=== PATIENT | male | born 1995 | race Caucasian/White ===

== ENCOUNTER 2019-12-11 16:52 | Emergency (ER) | payer OTHER, SELFPAY ==
[2019-12-11 17:04] VITALS: BP 158/80; PULSE 100; RESP 16; TEMP 37.2; O2SAT 98
--- NOTE | 2019-12-11 17:10 | ED.GENADULT ---
HPI - General Adult General Chief complaint: Wound/Laceration Stated complaint: Extremity injury, upper Time Seen by Provider: 12/11/19 17:10 Source: patient and RN notes reviewed Mode of arrival: ambulatory Limitations: no limitations History of Present Illness HPI narrative: 24-year-old male presents with complaints of laceration to 3rd (middle) finger on right hand, caused by pocket knife today 20 minutes prior to arrival to [facility]. Julio says he was cutting a bundle of wire when he sliced open LT 3rd finger. Applied pressure to control bleeding. Denies focal weakness and altered sensation. Denies pain, numbness or tingling, or loss of mobility. No foreign body sensation. LEFT HAND dominant hand. Tetanus NOT up to date, will update today. Remains active. The patient reports he have not been diagnosed with COVID-19. The patient reports he is not waiting for the results of a COVID-19 lab test. The patient reports he do not have fever, chills, weakness, or fatigue. The patient reports he do not have a new or worsening cough or shortness of breath. Denies chest pain. The patient reports he do not have any rhinorrhea, congestion, loss of taste, sore throat, nausea, vomiting, abdominal pain, and diarrhea. Tolerating po intake well. Denies recent traveling. Denies concerns for COVID-19 or exposures been home with limited outdoor exposure except for essential household needs, work, and return home. At this time, patient is not suspected of having COVID-19. Some parts of this dictation were generated by voice recognition software and may contain typographical and/or grammatical inaccuracies Related Data Home Medications Medication Instructions Recorded Confirmed insulin lispro [Humalog U-100 unit CONTINUOUS SUBCUTANEOUS 12/11/19 Insulin] INFUSION DIRECTED Allergies Allergy/AdvReac Type Severity Reaction Status Date / Time No Known Allergies Allergy Unverified 07/18/18 20:32 Review of Systems Review of Systems: Narrative: CONSTITUTIONAL: Denies fever, chills, sweats. EYES: Denies visual changes, redness, discharge. ENT: Denies rhinorrhea, congestion, sore throat, otalgia. CARDIOVASCULAR: Denies chest pain, palpitations, edema. RESPIRATORY: Denies dyspnea, wheezing, cough. GASTROINTESTINAL: Denies abdominal pain, nausea, vomiting, or diarrhea. SKIN: Denies rash or itching. Complains of laceration to 3rd (middle) finger on right hand. MUSCULOSKELETAL: Denies acute back pain, joint pain, or myalgia. NEUROLOGIC: Denies numbness or focal weakness. PSYCHIATRIC: Denies anxiety or depression. All other systems reviewed & are unremarkable except as noted in HPI and below. [facility] Past Medical History Medical History (Updated 12/11/19 @ 17:57 by NICOLAS Tucker) Type 1 diabetes Surgical History Surgical History (Updated 12/11/19 @ 17:51 by NICOLAS Tucker) No significant past surgical history Family History Family History (Updated 12/11/19 @ 17:52 by NICOLAS Tucker) Father Hypertension Mother Alive and well Social History Social History (Updated 12/11/19 @ 17:53 by NICOLAS Tucker) Smoking status: Current every day smoker Tobacco type: e-cigarettes/vaping Second hand tobacco smoke exposure: No Alcohol intake: never Substance use: current Substance use type: marijuana Living arrangements: with family Occupation/Education: occupation Gender identity (if verbalized by the patient): Male Sexual Orientation (if Verbalized by the Patient): Straight or Heterosexual Comments At time of signature, agree with nurse past medical, surgical, social, and family history. There is no relevant family history pertinent to the presenting complaint. Exam Narrative: Exam Narrative: GENERAL: This is a well-nourished, well-developed patient, in no apparent distress. HEAD: normocephalic, atraumatic. CARDIOVASCULAR: Regular rate and rhythm without mur
[2019-12-11] MEDS: TETANUS,DIPHTHERIA,AC PERTUSSIS ADULT (0.5 ML) BOOSTRIX IM (17:20)
[2019-12-11 17:59] VITALS: BP 142/78
== END 2019-12-11 17:59 | disposition home or self-care (01) ==
PROVIDERS: Emergency Provider Nurse Practitioner Family; PCP Family Medicine
DX: S61.212A Laceration without foreign body of right middle finger without damage to nail, initial encounter (principal); W26.0XXA Contact with knife, initial encounter; Z23 Encounter for immunization; F17.200 Nicotine dependence, unspecified, uncomplicated; E10.9 Type 1 diabetes mellitus without complications
CPT/HCPCS: 12002; 90471; 90715; 99213; G0463

== ENCOUNTER 2022-02-13 06:33 | Inpatient (IN) | payer OTHER, SELFPAY ==
[2022-02-13] VITALS (11 sets, daily range): BP systolic 101–143; BP diastolic 51–88; PULSE 78–107; RESP 16–21; TEMP 36.6–37.2; O2SAT 97–100; BMI 25.1
--- NOTE | ~2022-02-13 | CT_ITS ---
CT Abdomen and Pelvis with contrast. History: Abdominal pain. Spiral CT of the abdomen and pelvis was performed after the administration of intravenous contrast. 1 00 cc of Omnipaque 350 was administered intravenously without complication. Dose reduction technique was used on this scan by utilizing automated exposure control and iterative reconstruction technique. The dose-length product (DLP) was 221.16 mGy-cm. Findings: Scans through the lung bases demonstrate mild atelectatic change. The liver, spleen, pancreas, gallbladder, adrenals and kidneys are within normal limits. No evidence of aortic aneurysm. No lymphadenopathy is seen. There is no evidence of bowel obstruction. Questionable mild wall thickening of the right colon versu s partial distention. No abscess or free air. Images through the pelvis were performed. Urinary bladder unremarkable. Prostate gland and seminal ve sicles are unremarkable. No ascites is seen. Impression: Questionable mild wall thickening of the right colon. Correlate for possible infectious/inflammatory colitis versus artifactual wall thickening due to underdistention. Reviewed, dictated and finalized at [facility]. OGY PHYSICIAN ASSISTANT Impression: Questionable mild wall thickening of the right colon. Correlate for possible in fectious/inflammatory colitis versus artifactual wall thickening due to underdi stention.
--- NOTE | ~2022-02-13 | XR_ITS ---
Thoracic spine: Clinical Indication: Pain AP and lateral views were performed. No fracture is seen. There is normal alignment of the vertebrae. The intervertebral disc spaces appe ar normal. Paravertebral soft tissues appear normal. Impression: No significant abnormalities noted. Reviewed, dictated and finalized at [facility]. [employer] Impression: No significant abnormalities noted.
--- NOTE | ~2022-02-13 | XR_ITS ---
Portable chest x-ray Comparison: None Clinical History: Nausea, vomiting Findings: Lungs are clear, without focal consolidation or pleural effusion. Cardiomediastinal silho uette is unremarkable. Bones and soft tissues are unremarkable. Impression: Normal chest. Reviewed, dictated and finalized at location . SHED GOODS STOCK CLERK Impression: Normal chest.
--- NOTE | ~2022-02-13 | XR_ITS ---
Lumbosacral Spine: AP and lateral views Clinical History: Pain Findings: The normal lordotic curve is maintained. The vertebral bodies and posterior elements are i ntact. The intervertebral disc spaces are preserved. The sacroiliac joints are normally outlined. Impression: No significant abnormality. Reviewed, dictated and finalized at [facility]. E EDUCATOR Impression: No significant abnormality.
[2022-02-13 06:39] LABS: Glucose Point of Care 422 mg/dl (65-105)
[2022-02-13] MEDS: SODIUM CHLORIDE 0.9% IV 1,000 ML 999 ML IV CONT ×3 (06:47→11:02)
[2022-02-13 06:51] LABS: Basophils Absolute Auto 0.2 K/mm3 (0.0-0.1); Basophils Percent Auto 0.7 % (0.2-1.2); Eosinophils Percent Auto 0.1 % (0-4.4); Hematocrit 50.4 % (42.0-52.0); Hemoglobin 16.3 g/dL (14.0-18.0); Immature Granulocyte Absolute 0.81 K/mm3 (0.00-0.031); Immature Granulocyte Percent A 2.9 % (0-0.5); Lymphocytes Absolute Auto 2.52 K/mm3 (0.9-3.2); Lymphocytes Percent Auto 9.2 % (18.3-44.2); Mean Corpuscular HGB Conc 32.3 g/dl (32-36); Mean Corpuscular Hemoglobin 29.6 pg (26-34); Mean Corpuscular Volume 91.5 fl (80-100); Mean Platelet Volume 9.5 fl (7.4-10.4); Monocytes Absolute Auto 1.4 K/mm3 (0.1-0.6); Monocytes Percent Auto 4.9 % (2.6-8.5); Neutrophils Absolute Auto 22.6 K/mm3 (1.3-6.7); Neutrophils Percent Auto 82.2 % (45.5-73.1); Platelet Count Result 358 k/mm3 (150-375); Red Blood Count 5.51 M/mm3 (4.6-6.20); Red Cell Distribution Width 11.9 % (11.5-14.5); White Blood Count 27.5 K/mm3 (4.5-10.0)
[2022-02-13 06:57] LABS: Alanine Aminotransferase 26 U/L (6-50); Albumin Level 5.5 g/dL (3.5-5.1); Alkaline Phosphatase 142 U/L (38-126); Anion Gap 31 mmol/L (8-16); Aspartate Amino Transferase 38 U/L (17-59); Bilirubin,Total 0.9 mg/dL (0.2-1.3); Blood Urea Nitrogen 29 mg/dL (9-20); Calcium 9.8 mg/dL (8.4-10.2); Carbon Dioxide 9 mmol/L (22-30); Chloride 103 mmol/L (98-107); Estimated CRCL calculation 88 ml/min; Estimated Glomerular Filt Rate > 60; Glucose 451 mg/dL (65-110); Magnesium 2.2 mg/dL (1.6-2.3); Phosphorus 7.3 mg/dL (2.5-4.5); Potassium 5.3 mmol/L (3.4-5.0); Sodium 143 mmol/L (137-145)
[2022-02-13 07:03] LABS: Alveolar/Arterial O2 Gradient 10.1 mmHg; Base Excess ABG -18.8 mEq/l (+/-2.0); Carboxyhemoglobin 0.7 % THb (0-2.0); Fractional Inspired Oxygen 21 %; Methemoglobin ABG 0.5 %THb (0-1.5); Oxygen Content ABG 21.2 %vol (16.0-22.0); Oxygen Saturation ABG 96.2 % (95.0-100.0); Oxyhemoglobin 95.5 % THb (90.0-100.0); PCO2 ABG 27.9 mmHg (35.0-45.0); PO2 ABG 106.2 mmHg (80.0-100.0); PO2 FiO2 Ratio Arterial Blood 5.06 %; Reduced Hemoglobin 3.3 %THb (0-5.0); Total Hemoglobin 15.7 g/dL (12.0-18.0)
[2022-02-13 07:05] LABS: Device ROOM AIR; Modified Allen's Test Pass; Site Drawn LEFT RADIAL; pH ABG 7.125 (7.350-7.450)
--- NOTE | 2022-02-13 07:15 | PC.NURSE ---
Patient report received from LACHO Ortiz. All questions answered and care of patient assumed.
--- NOTE | 2022-02-13 07:38 | ED.RECABL ---
HPI - Recheck/Abnormal Lab/Rx General Chief Complaint: Recheck/Abnormal Lab/Rx Stated Complaint: dka Time Seen by Provider: 02/13/22 07:08 Source: patient Mode of arrival: wheelchair History of Present Illness HPI narrative: This is a 26 year old male with history of DM type 1 who presents for evaluation of high blood sugar. He states this morning his blood sugar was above 600. He has been having increased thirst, nausea, vomiting, and diarrhea. He also reports mid constant abdominal pain this morning. He reports cough. He is unsure if he had fever but he states he does feel hot. He reports history of DKA 5 years ago. He denies any recent medication changes. He uses an insulin pump, and he reports he bolused himself 3 units prior to arrival. Related Data Allergies Allergy/AdvReac Type Severity Reaction Status Date / Time No Known Allergies Allergy Verified 02/13/22 06:47 Review of Systems Constitutional: Constitutional: Reports fatigue, Denies fever(s) and Reports weakness Cardiovascular: Cardiovascular: Denies syncope, Reports rapid heart rate, Denies irregular heart rhythm, Denies leg edema and Denies dyspnea Respiratory: Respiratory: Denies chest congestion, Reports cough, Denies hemoptysis, Denies excessive phlegm production and Denies dyspnea Gastrointestinal: Gastrointestinal: Reports abdominal pain, Denies hematochezia, Reports diarrhea, Reports nausea and Reports vomiting Genitourinary: Genitourinary: Denies hematuria, Denies dysuria, Denies penile discharge and Denies testicular pain Musculoskeletal: Musculoskeletal: Denies joint swelling, Denies loss of height and Denies muscle weakness Neurologic: Denies syncope, Denies focal weakness and Denies weakness PMFSH Past Medical History Medical History (Updated 02/13/22 @ 12:14 by Josemanuel Benavides MD) Diabetic ketoacidosis Type 1 diabetes mellitus with hyperglycemia Surgical History Surgical History (Updated 02/13/22 @ 15:39 by Bhavna Carrillo NP) No pertinent past surgical history Family History Family History Other Depression Family history of Alzheimer's disease Family history of arthritis Family history of elevated blood lipids Family history of malignant neoplasm of esophagus Hypertension Social History Social History (Updated 02/13/22 @ 15:41 by Bhavna Carrillo NP) Social History: He lives with his significant other. He does not have a durable power attorney law clerk for healthcare. The patient does vape tobacco. Patient denies any marijuana or other illicit drugs. He denies any alcohol, except for an occasional social drink. The patient is self-employed he works for a [employer] company. Code status full code Smoking status: Current every day smoker Tobacco type: e-cigarettes/vaping Alcohol intake: never Lack of Transportation: No Lack of Food: Sometimes True Current Housing: I Have Housing Concerned About Future Housing: No Difficulty Paying Gas/Electric Bills: No Difficulty Paying for Meds: No Currently Unemployed: No Education: High School Diploma/GED Difficulty w/ Childcare or Family Care: No Spiritual care concerns: No Exam Const: General: ill appearing Nutritional Appearance: thin Orientation/consciousness: patient oriented x3 HENMT: Head: normal to inspection Face and sinus: normal facial exam Mouth: Yes dry mucous membranes Eyes: EOM: EOMs intact bilaterally Neck: Neck: normal visual inspection Chest: Chest palpation & inspection: normal inspection of the chest Resp: Effort & Inspection: normal respiratory effort Auscultation: clear to auscultation bilaterally and no wheezes Cardio: Rate: tachycardic Rhythm: regular rhythm Heart sounds: no murmurs GI: GI Palp: Yes Soft to palpation, Yes Tenderness to palpation present (GI) (Diffuse), No Guarding due to palpation present (GI), No Rigid due to palpation and No Hernia p
[2022-02-13] MEDS: INSULIN HUMAN REGULAR (*BKC) 100 UNITS in SODIUM CHLORIDE 0.9% IV 99 ML 7.8 UNITS IV CONT (07:54)
[2022-02-13 08:00] LABS: Anion Gap 27 mmol/L (8-16); Blood Urea Nitrogen 29 mg/dL (9-20); Calcium 8.9 mg/dL (8.4-10.2); Carbon Dioxide 7 mmol/L (22-30); Chloride 105 mmol/L (98-107); Estimated CRCL calculation 88 ml/min; Estimated Glomerular Filt Rate > 60; Glucose 433 mg/dL (65-110); Potassium 5.6 mmol/L (3.4-5.0); Sodium 139 mmol/L (137-145)
[2022-02-13] MEDS: ONDANSETRON INJ 4 MG/2 ML VIAL IV PUSH (08:00)
[2022-02-13 08:01] LABS: Beta-Hydroxybutyrate/Acetoacetate 8.21 mmol/L (0.02-0.27)
[2022-02-13] MEDS: SODIUM CHLORIDE 0.9% IV 1,000 ML 150 ML IV CONT (08:07)
[2022-02-13 08:21] LABS: Add Urine Microscopic? YES; Appearance Urine Clear (Clear); Bilirubin Urine Negative (Negative); Blood Urine Trace-Intact (Negative); Color Urine Light Yellow (Yellow); Glucose Urine UA 3+ mg/dL (Negative); Ketones Urine 3+ mg/dL (Negative); Leukocyte Esterase Ur Negative LEU/UL (Negative); Nitrate Urine Negative (Negative); Protein Urine Negative (Negative); Specific Grav Ur 1.025 (1.001-1.035); Urobilinogen Urine 0.2 mg/dL (<2.0); pH Urine 5.5 (5.0-9.0)
[2022-02-13 08:25] LABS: Bacteria Urine Trace /hpf; Mucus Urine Rare /lpf; WBC Urine 0-3 /hpf
[2022-02-13 08:26] LABS: Influenza A QL RT-PCR Negative (Negative); Influenza B QL RT-PCR Negative (Negative); SARS-CoV-2 RNA PCR Negative
[2022-02-13 09:11] LABS: Glucose Point of Care 365 mg/dl (65-105)
[2022-02-13 09:24] LABS: Glucose Point of Care 335 mg/dl (65-105)
[2022-02-13 10:03] LABS: Glucose Point of Care 266 mg/dl (65-105)
[2022-02-13 10:50] LABS: Anion Gap 19 mmol/L (8-16); Blood Urea Nitrogen 26 mg/dL (9-20); Calcium 8.3 mg/dL (8.4-10.2); Carbon Dioxide 10 mmol/L (22-30); Chloride 108 mmol/L (98-107); Estimated CRCL calculation 107 ml/min; Estimated Glomerular Filt Rate > 60; Glucose 243 mg/dL (65-110); Potassium 4.3 mmol/L (3.4-5.0); Sodium 137 mmol/L (137-145)
[2022-02-13 10:55] LABS: Glucose Point of Care 217 mg/dl (65-105)
[2022-02-13] MEDS: KCL 20 MEQ/D5/0.45% SOD CHL 1,000 ML 150 ML IV CONT ×2 (11:03→17:08)
[2022-02-13 12:00] LABS: Glucose Point of Care 191 mg/dl (65-105)
--- NOTE | 2022-02-13 12:01 | WPDCNINT ---
Assessment and Plan Assessment and plan (1) Colitis: Code(s): K52.9 - Noninfective gastroenteritis and colitis, unspecified Status: Acute Assessment and Plan: Patient complaining of abdominal pain and diarrhea -CT scan of the abdomen and pelvis showed questionable mild wall thickening of the right colon, correlate for possible infectious/inflammatory colitis versus artifactual wall thickening due to under distension -patient started on Zosyn and will continue (2) Leukocytosis: Code(s): D72.829 - Elevated white blood cell count, unspecified Status: Acute (3) DKA, type 1: Code(s): E10.10 - Type 1 diabetes mellitus with ketoacidosis without coma Status: Acute Assessment and Plan: Patient presented with hyperglycemia, nausea, vomiting, diarrhea -diagnosed with diabetic ketoacidosis with elevated beta hydroxybutyrate, anion gap metabolic acidosis, ABG showed a pH of 7.12 -patient received 2 L IV fluids in the ER and started on insulin infusion -will give additional IV fluid this patient states he is thirsty, clinical exam in showed hypovolemia with dry oral mucosa -continue insulin infusion for now, will transition to long-acting insulin sliding scale insulin once anion gap closes -okay to have ice chips and sips of water -hemoglobin A1c was 11.0 this admission Plan DVT prophylaxis: Lovenox Stress ulcer prophylaxis: Not indicated Nutrition: NPO for now except ice chips and sips of water Discussed with patient and updated him with his condition and plan of care. Code Status: Full code Critical Care Time Spent: 42 minutes Due to a high probability of clinically significant, life threatening deterioration, the patient required my highest level of preparedness to intervene emergently and I personally spent this critical care time directly and personally managing the patient. This critical care time included obtaining a history; examining the patient; pulse oximetry; ordering and review of studies; arranging urgent treatment with development of a management plan; evaluation of patient's response to treatment; frequent reassessment; and discussions with other providers. It was exclusive of separately billable procedures and treating other patients and teaching time. Please see Assessment and Plan section and the rest of the note for further information on patient assessment and treatment This dictation may have been done utilizing a voice recognition system. Attempts have been made to correct errors. However, there may be uncorrected grammatical, spelling, and recognitions errors present. Power System Electrical Engineer Consult Note Consult date: 02/13/22 Reason for consult: Diabetic ketoacidosis, nausea, vomiting, abdominal pain, polyuria, polydipsia HPI: Julio Acsota is a 26 year old male with past medical history of diabetes type 1 on insulin pump presented the ED on 02/13/2022 with complains of hyperglycemia with blood sugars of 600, increased thirst, nausea, vomiting, diarrhea, increased urination. Patient states that he has had DKA about 5 years back, states he has been regular with his insulin and his pump is functioning fine. Patient was found to be in diabetic ketoacidosis with elevated anion gap, beta hydroxybutyrate. ABG showed a pH of 7.12. Patient was given 2 L IV fluids and started on insulin infusion and transferred to the ICU for further management Patient seen and examined the ICU upon arrival, very pleasant gentleman, in no acute distress at this time. Complains of back pain, abdominal pain and nausea. Patient is very thirsty and wants to drink some water. States he smokes marijuana, vapes, occasional alcohol but no other illicit drugs. Denies any other medical conditions Review of Systems Review of Systems: All systems reviewed & are unremarkable except as noted in HPI and below PMFSH Past Medical History Medical History (Updated 02/13/22 @ 12:14 by Josemanuel Benavides MD) Diabetic ke
[2022-02-13 13:00] LABS: Glucose Point of Care 181 mg/dl (65-105)
[2022-02-13 14:13] LABS: Glucose Point of Care 186 mg/dl (65-105)
[2022-02-13] MEDS: HYDROcodone/acetaminophen (*CRX) 5-325 MG TABLET 1 TAB PO (14:59)
[2022-02-13 15:04] LABS: Glucose Point of Care 177 mg/dl (65-105)
--- NOTE | 2022-02-13 15:08 | PM.IMHP ---
H&P: HPI History of Present Illness Date/Time: 02/13/22 15:08 Chief Complaint: Abnormal labs Narrative: This is a 26-year-old male patient who has diabetes type 1 who was diagnosed as a young child. The patient presented to the emergency room to be evaluated with high blood sugars. The patient does have a DEXA come and insulin pump. He stated this morning his blood sugar was over 600. He had increased thirst nausea and diarrhea. He also reported that he had mid constant abdominal pain this morning. He did not check his temperature but he feels like he is hot. The patient's last DKA episode was 5 years ago. No recent medication changes. The patient did bolus himself 3 units of insulin today prior to arrival to the emergency room. The patient has also has nausea vomiting w/o diarrhea. His white count was noted to be 27.5. On his ABGs pH was 7.125. PO2 106.2. PCO2 was 27.9. Patient has metabolic acidosis. Initially his potassium was 5.6 and now to 4.3. His blood sugar initially was 422 and is now 177. A1c was noted to be 11. Beta hydroxybutyrate acetoacetate was noted to be 8.21. Influenza A/B and COVID are all negative. Thoracic spine x-ray was noted to be no significant abnormalities per Radiology. Lumbar spine no significant abnormality. Chest x-ray was read as a normal chest. Abdominal pelvis CT was read as questionable mild wall thickening of the right colon. Correlate for possible infectious inflammatory colitis versus artifactual wall thickening due to under distention. The patient was given IV fluids, Zofran, Zosyn, potassium supplement and [place]. The patient was started on an insulin drip. The rehabilitation engineer has been consulted for ICU. The patient is being admitted to inpatient status on the date of service of 02/13/2022. Review of Systems Review of Systems: See HPI All systems reviewed & are unremarkable except as noted in HPI and below Constitutional: Constitutional: Reports as per HPI and Reports no additional constitutional complaints Eyes: Eyes: Reports as per HPI and Reports no additional eye complaints ENT: Reports system reviewed and no additional complaints, except as documented and Reports Normal hearing present Cardiovascular: Cardiovascular: Reports no additional cardiovascular complaints Respiratory: Respiratory: Reports no additional respiratory complaints and Reports no additional respiratory complaints Gastrointestinal: Gastrointestinal: Reports as per HPI and Reports no additional gastrointestinal complaints Musculoskeletal: Musculoskeletal: Reports no additional musculoskeletal complaints Integumentary/Breasts: Skin/Breast: Reports system reviewed and no additional complaints, except as docu and Reports as per HPI Neurologic: Reports system reviewed and no additional complaints, except as documented, Reports as per HPI and Reports Normal hearing present Psychiatric: Psychiatric: Reports no additional psychiatric complaints and Reports as per HPI Endocrine: Endocrine: Reports no additional endocrine complaints Hematologic/Lymphatic: Hematologic/Lymphatic: Reports no additional hematologic/lymphatic complaints Allergic/Immunologic: Allergic/Immunologic: Reports no additional allergic/immunologic complaints [facility] Past Medical History Medical History (Updated 02/13/22 @ 12:14 by Josemanuel Benavides MD) Diabetic ketoacidosis Type 1 diabetes mellitus with hyperglycemia Surgical History Surgical History (Updated 02/13/22 @ 15:39 by Bhavna Carrillo NP) No pertinent past surgical history Family History Family History Other Depression Family history of Alzheimer's disease Family history of arthritis Family history of elevated blood lipids Family history of malignant neoplasm of esophagus Hypertension Social History Social History (Updated 02/13/22 @ 15:41 by Bhavna Carrillo NP) Social History: He lives with his sign
[2022-02-13 15:43] LABS: Anion Gap 8 mmol/L (8-16); Blood Urea Nitrogen 22 mg/dL (9-20); Calcium 8.2 mg/dL (8.4-10.2); Carbon Dioxide 18 mmol/L (22-30); Chloride 113 mmol/L (98-107); Estimated CRCL calculation 119 ml/min; Estimated Glomerular Filt Rate > 60; Glucose 185 mg/dL (65-110); Potassium 4.2 mmol/L (3.4-5.0); Sodium 139 mmol/L (137-145)
[2022-02-13 16:06] LABS: Glucose Point of Care 154 mg/dl (65-105)
[2022-02-13 17:06] LABS: Glucose Point of Care 156 mg/dl (65-105)
[2022-02-13] MEDS: INSULIN HUMAN REGULAR (*BKC) 100 UNITS in SODIUM CHLORIDE 0.9% IV 99 ML 7.68 UNITS IV CONT (17:06)
[2022-02-13 18:06] LABS: Glucose Point of Care 119 mg/dl (65-105)
[2022-02-13 19:07] LABS: Glucose Point of Care 118 mg/dl (65-105)
[2022-02-13 19:53] LABS: Anion Gap 7 mmol/L (8-16); Blood Urea Nitrogen 20 mg/dL (9-20); Calcium 8.5 mg/dL (8.4-10.2); Carbon Dioxide 19 mmol/L (22-30); Chloride 114 mmol/L (98-107); Estimated CRCL calculation 119 ml/min; Estimated Glomerular Filt Rate > 60; Glucose 109 mg/dL (65-110); Potassium 3.9 mmol/L (3.4-5.0); Sodium 140 mmol/L (137-145)
[2022-02-13 20:02] LABS: Glucose Point of Care 86 mg/dl (65-105)
[2022-02-13] MEDS: INSULIN GLARGINE (*BKC) 100 UNITS/ML 30 UNITS SUB-Q (20:53)
[2022-02-13 20:58] LABS: Glucose Point of Care 90 mg/dl (65-105)
[2022-02-13 23:21] LABS: Anion Gap 8 mmol/L (8-16); Blood Urea Nitrogen 18 mg/dL (9-20); Calcium 8.3 mg/dL (8.4-10.2); Carbon Dioxide 20 mmol/L (22-30); Chloride 105 mmol/L (98-107); Estimated CRCL calculation 134 ml/min; Estimated Glomerular Filt Rate > 60; Glucose 196 mg/dL (65-110); Potassium 4.5 mmol/L (3.4-5.0); Sodium 133 mmol/L (137-145)
[2022-02-14] VITALS (9 sets, daily range): BP systolic 119–128; BP diastolic 58–82; PULSE 71–89; RESP 12–30; TEMP 36.4–36.9; O2SAT 98–100
[2022-02-14 04:40] LABS: Basophils Absolute Auto 0.1 K/mm3 (0.0-0.1); Basophils Percent Auto 0.3 % (0.2-1.2); Eosinophils Absolute Auto 0.1 K/mm3 (0-0.3); Eosinophils Percent Auto 0.5 % (0-4.4); Hematocrit 37.4 % (42.0-52.0); Hemoglobin 12.6 g/dL (14.0-18.0); Immature Granulocyte Absolute 0.12 K/mm3 (0.00-0.031); Immature Granulocyte Percent A 0.6 % (0-0.5); Lymphocytes Absolute Auto 2.92 K/mm3 (0.9-3.2); Lymphocytes Percent Auto 14.9 % (18.3-44.2); Mean Corpuscular HGB Conc 33.7 g/dl (32-36); Mean Corpuscular Volume 86.2 fl (80-100); Monocytes Absolute Auto 0.9 K/mm3 (0.1-0.6); Monocytes Percent Auto 4.7 % (2.6-8.5); Neutrophils Absolute Auto 15.5 K/mm3 (1.3-6.7); Platelet Count Result 256 k/mm3 (150-375); Red Blood Count 4.34 M/mm3 (4.6-6.20); Red Cell Distribution Width 12.1 % (11.5-14.5); White Blood Count 19.6 K/mm3 (4.5-10.0)
[2022-02-14 05:21] LABS: Alanine Aminotransferase 18 U/L (6-50); Albumin Level 3.5 g/dL (3.5-5.1); Alkaline Phosphatase 80 U/L (38-126); Anion Gap 9 mmol/L (8-16); Aspartate Amino Transferase 29 U/L (17-59); Bilirubin,Total 1.2 mg/dL (0.2-1.3); Blood Urea Nitrogen 16 mg/dL (9-20); Calcium 8.2 mg/dL (8.4-10.2); Carbon Dioxide 21 mmol/L (22-30); Chloride 107 mmol/L (98-107); Estimated CRCL calculation 134 ml/min; Estimated Glomerular Filt Rate > 60; Glucose 217 mg/dL (65-110); Magnesium 1.8 mg/dL (1.6-2.3); Potassium 4.3 mmol/L (3.4-5.0); Sodium 137 mmol/L (137-145)
[2022-02-14 08:30] LABS: Glucose Point of Care 229 mg/dl (65-105)
[2022-02-14] MEDS: INSULIN ASPART (*BKC) 100 UNITS/ML SUB-Q ×2 (09:00→17:20)
[2022-02-14] MEDS: ENOXAPARIN 40 MG/0.4 ML SYRINGE SUB-Q (09:15)
--- NOTE | 2022-02-14 09:24 | WPDINTPN ---
Progress Note: A&P Assessment and Plan (1) Colitis: Code(s): K52.9 - Noninfective gastroenteritis and colitis, unspecified Status: Acute Assessment and Plan: Patient complaining of abdominal pain and diarrhea -CT scan of the abdomen and pelvis showed questionable mild wall thickening of the right colon, correlate for possible infectious/inflammatory colitis versus artifactual wall thickening due to under distension Continue Zosyn (started on 02/13) -02/13/2022: Blood cultures pending (2) Leukocytosis: Code(s): D72.829 - Elevated white blood cell count, unspecified Status: Acute Assessment and Plan: Could be related to colitis and or DKA/stress -WBC count trending down, will continue to monitor -continue antibiotics as above (3) DKA, type 1: Code(s): E10.10 - Type 1 diabetes mellitus with ketoacidosis without coma Status: Acute Assessment and Plan: Patient presented with hyperglycemia, nausea, vomiting, diarrhea -diagnosed with diabetic ketoacidosis with elevated beta hydroxybutyrate, anion gap metabolic acidosis, ABG showed a pH of 7.12 -in adequately fluid-resuscitated in the ER and ICU -patient has been transition to long-acting insulin and sliding scale insulin -Lantus increased -continue Accu-Cheks and sliding scale insulin -hemoglobin A1c was 11.0 this admission Plan DVT prophylaxis: Lovenox Stress ulcer prophylaxis: Not indicated Nutrition: Diabetic diet Discussed with patient and updated him with his condition and plan of care. Code Status: Full code Critical Care Time Spent: 31 minutes Patient may be transferred to medical floor Due to a high probability of clinically significant, life threatening deterioration, the patient required my highest level of preparedness to intervene emergently and I personally spent this critical care time directly and personally managing the patient. This critical care time included obtaining a history; examining the patient; pulse oximetry; ordering and review of studies; arranging urgent treatment with development of a management plan; evaluation of patient's response to treatment; frequent reassessment; and discussions with other providers. It was exclusive of separately billable procedures and treating other patients and teaching time. Please see Assessment and Plan section and the rest of the note for further information on patient assessment and treatment This dictation may have been done utilizing a voice recognition system. Attempts have been made to correct errors. However, there may be uncorrected grammatical, spelling, and recognitions errors present. Subjective Date/time seen: 02/14/22 09:24 Interval history: Reason for consult: Diabetic ketoacidosis, leukocytosis, colitis with abdominal pain, nausea and vomiting. CT scan of the abdomen and pelvis showed questionable mild wall thickening of the right colon possible infectious or inflammatory colitis 02/14/2022: Patient seen and examined the ICU, was transition to long-acting insulin and sliding scale insulin overnight, started on diabetic diet. Patient is pleasant, denies any chest pain, shortness of breath, abdominal pain, nausea, vomiting. Still complains of mild back pain. Urine output has been adequate, patient has been afebrile and hemodynamically stable. Tolerating p.o. diet Review of Systems Review of Systems: All systems reviewed & are unremarkable except as noted in HPI and below Exam Narrative: General: Pleasant gentleman in no acute distress HEENT:? Pupils are equal and reactive, sclera is clear, moist oral mucosa Neck:? Supple Respiratory:? Clear to auscultation bilaterally, no wheezing Cardiac:? S1-S2 normal, regular rate and rhythm Abdomen:? Soft, nontender, nondistended, normoactive bowel sounds Extremities:? No edema, palpable pedal pulses Neuro:? Alert, awake, oriented x3, nonfocal Skin:? Warm and dry Psych:? Normal affect and mentation
[2022-02-14] MEDS: INSULIN GLARGINE (*BKC) 100 UNITS/ML 10 UNITS SUB-Q (10:20)
[2022-02-14 12:16] LABS: Glucose Point of Care 164 mg/dl (65-105)
--- NOTE | 2022-02-14 16:40 | PM.IMPN ---
Progress Note: A&P Assessment and Plan (1) Colitis: Code(s): K52.9 - Noninfective gastroenteritis and colitis, unspecified Status: Acute Assessment and Plan: Patient presented with abdominal pain and diarrhea. He though denies having any diarrhea since past 3 days. -CT scan of the abdomen and pelvis showed questionable mild wall thickening of the right colon, correlate for possible infectious/inflammatory colitis versus artifactual wall thickening due to under distension WBC count 27,000 on admission Started on IV Zosyn which will be continued. Started on 02/13 Blood culture no growth WBC count improved down to 19,000 (2) Leukocytosis: Code(s): D72.829 - Elevated white blood cell count, unspecified Status: Acute Assessment and Plan: Could be related to colitis and or DKA/stress -WBC count trending down, will continue to monitor -continue antibiotics as above COVID influenza negative Chest x-ray was normal (3) DKA, type 1: Code(s): E10.10 - Type 1 diabetes mellitus with ketoacidosis without coma Status: Acute Assessment and Plan: Patient presented with hyperglycemia, nausea, vomiting, diarrhea -diagnosed with diabetic ketoacidosis with elevated beta hydroxybutyrate, anion gap metabolic acidosis, ABG showed a pH of 7.12 -in adequately fluid-resuscitated in the ER and ICU -patient has been transition to long-acting insulin and sliding scale insulin -Lantus increased -continue Accu-Cheks and sliding scale insulin -hemoglobin A1c was 11.0 this admission Patient normally on pump. Takes 1.7 units from 9 P to 7A and 1.8 units from 07A to 9p total basal unit of 42.2 units per day He is scheduled to get 40 units at bedtime tonight. Will check labs again tomorrow and re-attempt to initiate his pump back later tomorrow in the evening. DKA might be related to underlying colitis Plan DVT prophylaxis: Lovenox Stress ulcer prophylaxis: Not indicated Nutrition: Diabetic diet Code status full code Subjective Date/time seen: 02/14/22 16:40 Interval history: Moved out of the ICU this morning. No further nausea vomiting. Denies any abdominal pain he never had diarrhea. Presented with diabetic ketoacidosis leukocytosis colitis. He has been diagnosed with type 1 diabetes when she was 6 years old. He has been on a pump since [age] years Review of Systems Review of Systems: All systems reviewed & are unremarkable except as noted in HPI and below Exam Narrative: General: Pleasant gentleman in no acute distress HEENT:? Pupils are equal and reactive, sclera is clear, moist oral mucosa Neck:? Supple Respiratory:? Clear to auscultation bilaterally, no wheezing Cardiac:? S1-S2 normal, regular rate and rhythm Abdomen:? Soft, nontender, nondistended, normoactive bowel sounds Extremities:? No edema, palpable pedal pulses Neuro:? Alert, awake, oriented x3, nonfocal Skin:? Warm and dry Psych:? Normal affect and mentation Objective Data Vital Signs Vital Signs: Vital Signs - 24 hr 02/13/22 17:40 02/13/22 20:00 02/13/22 21:48 Temperature 98.7 F Pulse Rate 78 82 82 Respiratory Rate 16 Blood Pressure 132/68 Pulse Oximetry 100 Oxygen Delivery 02/13/22 22:00 02/13/22 22:00 02/14/22 00:00 Temperature Pulse Rate 86 83 89 Respiratory Rate 18 Blood Pressure Pulse Oximetry 100 Oxygen Delivery 02/14/22 00:00 02/14/22 02:00 02/14/22 02:00 Temperature 98 F 98.3 F Pulse Rate 89 80 80 Respiratory Rate 16 16 Blood Pressure 123/59 L Pulse Oximetry 100 100 Oxygen Delivery 02/14/22 04:00 02/14/22 04:00 02/13/22 21:18 Temperature 97.9 F Pulse Rate 79 79 Respiratory Rate 16 Blood Pressure 128/82 Pulse Oximetry 100 97 Oxygen Delivery Room Air 02/14/22 06:00 02/14/22 06:00 02/14/22 08:00 Temperature 97.9 F Pulse Rate 83 81 75 Respiratory Rate 16 24 H Blood Pressure 124/74 Pulse Oximetry 99 99 Oxygen Delivery
[2022-02-14 17:25] LABS: Glucose Point of Care 214 mg/dl (65-105)
[2022-02-14] MEDS: HYDROcodone/acetaminophen (*CRX) 5-325 MG TABLET 1 TAB PO (20:00)
[2022-02-14] MEDS: INSULIN GLARGINE (*BKC) 100 UNITS/ML 40 UNITS SUB-Q (20:11)
[2022-02-14 21:27] LABS: Glucose Point of Care 203 mg/dl (65-105)
[2022-02-15 05:57] VITALS: BP 129/68; PULSE 58; RESP 18; TEMP 36.2; O2SAT 100
[2022-02-15 06:54] LABS: Basophils Absolute Auto 0.1 K/mm3 (0.0-0.1); Basophils Percent Auto 0.7 % (0.2-1.2); Eosinophils Absolute Auto 0.1 K/mm3 (0-0.3); Eosinophils Percent Auto 0.9 % (0-4.4); Hematocrit 40.2 % (42.0-52.0); Hemoglobin 13.7 g/dL (14.0-18.0); Immature Granulocyte Absolute 0.04 K/mm3 (0.00-0.031); Immature Granulocyte Percent A 0.4 % (0-0.5); Lymphocytes Percent Auto 36.2 % (18.3-44.2); Mean Corpuscular HGB Conc 34.1 g/dl (32-36); Mean Corpuscular Hemoglobin 29.1 pg (26-34); Mean Corpuscular Volume 85.4 fl (80-100); Mean Platelet Volume 9.1 fl (7.4-10.4); Monocytes Absolute Auto 0.7 K/mm3 (0.1-0.6); Monocytes Percent Auto 7.2 % (2.6-8.5); Neutrophils Absolute Auto 5.6 K/mm3 (1.3-6.7); Neutrophils Percent Auto 54.6 % (45.5-73.1); Platelet Count Result 283 k/mm3 (150-375); Red Blood Count 4.71 M/mm3 (4.6-6.20); White Blood Count 10.2 K/mm3 (4.5-10.0)
[2022-02-15 07:25] LABS: Alanine Aminotransferase 30 U/L (6-50); Albumin Level 4.2 g/dL (3.5-5.1); Alkaline Phosphatase 89 U/L (38-126); Anion Gap 6 mmol/L (8-16); Aspartate Amino Transferase 41 U/L (17-59); Bilirubin,Total 0.7 mg/dL (0.2-1.3); Blood Urea Nitrogen 10 mg/dL (9-20); Calcium 9.2 mg/dL (8.4-10.2); Carbon Dioxide 31 mmol/L (22-30); Chloride 104 mmol/L (98-107); Estimated CRCL calculation 125 ml/min; Estimated Glomerular Filt Rate > 60; Glucose 50 mg/dL (65-110); Magnesium 2.1 mg/dL (1.6-2.3); Potassium 2.5 mmol/L (3.4-5.0); Sodium 141 mmol/L (137-145)
[2022-02-15] MEDS: ENOXAPARIN 40 MG/0.4 ML SYRINGE SUB-Q (08:02)
[2022-02-15 08:03] LABS: Glucose Point of Care 91 mg/dl (65-105)
[2022-02-15] MEDS: POTASSIUM CHLORIDE INJ 40 MEQ in SODIUM CHLORIDE 0.9% IV 500 ML 130 MEQ IVPB (10:06)
[2022-02-15 11:58] LABS: Glucose Point of Care 216 mg/dl (65-105)
[2022-02-15] MEDS: INSULIN ASPART (*BKC) 100 UNITS/ML SUB-Q (12:10)
--- NOTE | 2022-02-15 13:30 | PCCDE ---
DIABETES EDUCATION F/UP: Pt admitted 02/13 with DKA and colitis. Pt has hx of T1D managed by endo Dr Marroquin in [place]. He uses Medtronic pump and SMBG (dislikes Guardian sensor). Pt sts my A1c is a little high, it's the holidays and I haven't been watching like I should Insulin pump is currently off and insulin orders are as follows: 35 units Lantus HS, high dose Novolog correction scale TID WM. Pt sts appetite is better and chart shows 100% intake at meals. Per Medtronic pump: ICR= 1:5, Sensitivity is 40, target BG is 110-130. Basal rate per H&P is 9p-7a 1.7 units/hr, 7a-9p 1.8 units/hr (42.2 units/24hr). FBS today was 50mg/dl (received 40 units Lantus last night), and lunch BG was 216. Discussed and recommended to Dr Lott: add 12 units Novolog WM and change correction scale to low, pt needs rx for ketone strips at discharge. Met with pt and discussed how to transition back to insulin pump after receiving SQ insulin. Pt has pump but no pump supplies here. Explained he will need to have family bring pump supplies to start pump here vs possible discharge today. Pt has Glucagon at home; sts need rx for ketone strips. Pt plans to get [employer] CGM after insurance updates in Mar. He will f/up with Dr Marroquin for this. Pt v/u. Provided business card.
[2022-02-15 14:00] VITALS: BP 126/80; PULSE 85; RESP 16; TEMP 36.2; O2SAT 100
--- NOTE | 2022-02-15 14:52 | PM.IMPN ---
Progress Note: A&P Assessment and Plan (1) Colitis: Code(s): K52.9 - Noninfective gastroenteritis and colitis, unspecified Status: Acute Assessment and Plan: Patient presented with abdominal pain and diarrhea. He though denies having any diarrhea since past 3 days. -CT scan of the abdomen and pelvis showed questionable mild wall thickening of the right colon, correlate for possible infectious/inflammatory colitis versus artifactual wall thickening due to under distension WBC count 27,000 on admission Started on IV Zosyn which will be continued. Started on 02/13 Blood culture no growth WBC count continues to improve (2) Leukocytosis: Code(s): D72.829 - Elevated white blood cell count, unspecified Status: Acute Assessment and Plan: Could be related to colitis and or DKA/stress -WBC count trending down, will continue to monitor -continue antibiotics as above COVID influenza negative Chest x-ray was normal (3) DKA, type 1: Code(s): E10.10 - Type 1 diabetes mellitus with ketoacidosis without coma Status: Acute Assessment and Plan: Patient presented with hyperglycemia, nausea, vomiting, diarrhea -diagnosed with diabetic ketoacidosis with elevated beta hydroxybutyrate, anion gap metabolic acidosis, ABG showed a pH of 7.12 -in adequately fluid-resuscitated in the ER and ICU -patient has been transition to long-acting insulin and sliding scale insulin -Lantus increased -continue Accu-Cheks and sliding scale insulin -hemoglobin A1c was 11.0 this admission Patient normally on pump. Takes 1.7 units from 9 P to 7A and 1.8 units from 07A to 9p total basal unit of 42.2 units per day his transition to 40 units of Lantus. Received it at 9:00 p.m. last night. Will transition to insulin pump tonight Will start the pump at 7:00 p.m. tonight and monitor Accu-Cheks while inpatient DKA might be related to underlying colitis Plan DVT prophylaxis: Lovenox Stress ulcer prophylaxis: Not indicated Nutrition: Diabetic diet Code status full code Subjective Date/time seen: 02/15/22 14:52 Interval history: no new complaints. Denies any diarrhea or abdominal pain. No nausea vomiting his throat pain is better. Prefers to get switched to pump Here Review of Systems Review of Systems: All systems reviewed & are unremarkable except as noted in HPI and below Exam Narrative: General: Pleasant gentleman in no acute distress HEENT:? Pupils are equal and reactive, sclera is clear, moist oral mucosa Neck:? Supple Respiratory:? Clear to auscultation bilaterally, no wheezing Cardiac:? S1-S2 normal, regular rate and rhythm Abdomen:? Soft, nontender, nondistended, normoactive bowel sounds Extremities:? No edema, palpable pedal pulses Neuro:? Alert, awake, oriented x3, nonfocal Skin:? Warm and dry Psych:? Normal affect and mentation Objective Data Vital Signs Vital Signs: Vital Signs - 24 hr 02/14/22 18:30 02/14/22 20:00 02/14/22 22:00 Temperature 98.3 F 97.5 F L Pulse Rate 78 71 Respiratory Rate 12 18 Blood Pressure 127/58 L 119/69 Pulse Oximetry 100 98 Oxygen Delivery Room Air 02/14/22 22:15 02/15/22 05:57 02/15/22 08:00 Temperature 97.2 F L Pulse Rate 58 L Respiratory Rate 18 Blood Pressure 129/68 Pulse Oximetry 99 100 Oxygen Delivery Room Air Room Air 02/15/22 14:00 Temperature 97.2 F L Pulse Rate 85 Respiratory Rate 16 Blood Pressure 126/80 Pulse Oximetry 100 Oxygen Delivery Intake/Output Intake/Output: Intake & Output 02/12/22 02/13/22 02/14/22 02/15/22 23:59 23:59 23:59 23:59 Intake Total 3350 1920 560 Output Total 1000 2200 Balance 2350 -280 560 Meds/Results Medications: Active Medications Generic Name Dose Route Start Last Admin Trade Name Prince PRN Reason Stop Dose Admin Acetaminophen 650 mg 02/13/22 14:36 Acetaminophen 325 Mg Tablet PO Q6H PRN Mild Pain (1-3) or Fever Hydrocodone Bitart/A
[2022-02-15 16:09] LABS: Potassium 3.6 mmol/L (3.4-5.0)
[2022-02-15 16:44] LABS: Glucose Point of Care 128 mg/dl (65-105)
[2022-02-15 21:16] LABS: Glucose Point of Care 165 mg/dl (65-105)
[2022-02-15 21:32] VITALS: BP 139/85; PULSE 72; RESP 18; TEMP 36.2; O2SAT 100
[2022-02-16 00:59] LABS: Glucose Point of Care 224 mg/dl (65-105)
[2022-02-16 05:42] VITALS: BP 133/79; PULSE 60; RESP 20; TEMP 36.2; O2SAT 100
[2022-02-16 07:52] LABS: Basophils Absolute Auto 0.1 K/mm3 (0.0-0.1); Basophils Percent Auto 0.7 % (0.2-1.2); Eosinophils Absolute Auto 0.1 K/mm3 (0-0.3); Eosinophils Percent Auto 1.9 % (0-4.4); Hematocrit 41.3 % (42.0-52.0); Hemoglobin 13.8 g/dL (14.0-18.0); Immature Granulocyte Absolute 0.01 K/mm3 (0.00-0.031); Immature Granulocyte Percent A 0.1 % (0-0.5); Lymphocytes Absolute Auto 2.99 K/mm3 (0.9-3.2); Lymphocytes Percent Auto 44.6 % (18.3-44.2); Mean Corpuscular HGB Conc 33.4 g/dl (32-36); Mean Corpuscular Hemoglobin 29.4 pg (26-34); Mean Corpuscular Volume 87.9 fl (80-100); Mean Platelet Volume 9.1 fl (7.4-10.4); Monocytes Absolute Auto 0.6 K/mm3 (0.1-0.6); Monocytes Percent Auto 8.3 % (2.6-8.5); Neutrophils Percent Auto 44.4 % (45.5-73.1); Platelet Count Result 221 k/mm3 (150-375); Red Cell Distribution Width 12.1 % (11.5-14.5); White Blood Count 6.7 K/mm3 (4.5-10.0)
[2022-02-16 08:03] LABS: Alanine Aminotransferase 25 U/L (6-50); Alkaline Phosphatase 77 U/L (38-126); Anion Gap 2 mmol/L (8-16); Aspartate Amino Transferase 25 U/L (17-59); Bilirubin,Total 1.4 mg/dL (0.2-1.3); Blood Urea Nitrogen 13 mg/dL (9-20); Calcium 9.1 mg/dL (8.4-10.2); Carbon Dioxide 33 mmol/L (22-30); Chloride 100 mmol/L (98-107); Estimated CRCL calculation 110 ml/min; Estimated Glomerular Filt Rate > 60; Glucose 274 mg/dL (65-110); Magnesium 2.1 mg/dL (1.6-2.3); Potassium 4.3 mmol/L (3.4-5.0); Sodium 135 mmol/L (137-145)
[2022-02-16 08:27] LABS: Glucose Point of Care 285 mg/dl (65-105)
[2022-02-16 11:48] LABS: Glucose Point of Care 254 mg/dl (65-105)
--- NOTE | 2022-02-16 15:14 | PM.DS ---
DS: Admitting Diagnosis Discharge Date 02/16/22 Admitting Diagnosis DKA DS: Discharge Diagnosis Discharge Diagnosis (1) Colitis: Code(s): K52.9 - Noninfective gastroenteritis and colitis, unspecified Status: Acute (2) Leukocytosis: Code(s): D72.829 - Elevated white blood cell count, unspecified Status: Acute (3) DKA, type 1: Code(s): E10.10 - Type 1 diabetes mellitus with ketoacidosis without coma Status: Acute DS: Summary Hospital Course Hospital Course: # acute DKA type 1: Patient presented with hyperglycemia, nausea, vomiting, diarrhea -diagnosed with diabetic ketoacidosis with elevated beta hydroxybutyrate, anion gap metabolic acidosis, ABG showed a pH of 7.12 -adequately fluid-resuscitated in the ER and ICU -patient has been transition to long-acting insulin and sliding scale insulin -Lantus dose adjusted the hospital stay -continue Accu-Cheks? and sliding scale insulin -hemoglobin A1c was 11.0 this admission Patient normally on pump.? Takes 1.7 units from 9 P to 7A and 1.8 units from 07A to 9p total basal unit of 42.2 units per day Just be transient 20 since gets completely resolved and is colitis improved as well lupus switched pump and monitor during hospital stay sugar remained stable without any reappearance of DKA like symptoms on the. He continued to follow-up with his molder wax ball as an outpatient basis. For emergency he was ordered Lantus and NovoLog supply for home in case she needs when his insulin pump fails. DKA might be related to underlying colitis # Colitis: Patient presented with abdominal pain and diarrhea.? He though denies having any diarrhea since past 3 days. -CT scan of the abdomen and pelvis showed questionable mild wall thickening of the right colon, correlate for possible infectious/inflammatory colitis versus artifactual wall thickening due to under distension WBC count 27,000 on admission Started on IV Zosyn which will be continued.? Started on 02/13 Blood culture no growth WBC count? continues to improve and normalized by the time of discharge. Augmentin at discharge # leukocytosis: Could be related to colitis and or DKA/stress -WBC count trending down, will continue to monitor -continue antibiotics as above COVID influenza negative Chest x-ray was normal # type 1 diabetes since age 6 # DVT prophylaxis:? Lovenox # Nutrition:? Diabetic diet cosmetology educator saw the patient and discussed with them # Code status full code Time Spent with Patient Time attestation: Total time spent providing and/or coordinating discharge services: 45 minutes Exam Narrative: General: Pleasant gentleman in no acute distress HEENT:? Pupils are equal and reactive, sclera is clear, moist oral mucosa Neck:? Supple Respiratory:? Clear to auscultation bilaterally, no wheezing Cardiac:? S1-S2 normal, regular rate and rhythm Abdomen:? Soft, nontender, nondistended, normoactive bowel sounds Extremities:? No edema, palpable pedal pulses Neuro:? Alert, awake, oriented x3, nonfocal Skin:? Warm and dry Psych:? Normal affect and mentation DS: Data Data Completed and Pending Labs on day of discharge: Preliminary micro results at discharge 02/13/22 19:09 Blood Culture - Preliminary Blood 02/13/22 19:13 Blood Culture - Preliminary Blood Imaging Radiologist's impression: ITS Impressions Abdomen/Pelvis CT 02/13/22 07:32 Impression: Questionable mild wall thickening of the right colon. Correlate for possible infectious/inflammatory colitis versus artifactual wall thickening due to underdistention. Chest X-Ray 02/13/22 07:45 Impression: Normal chest. Lumbar Spine X-Ray 02/13/22 10:51 Impression: No significant abnormality. Thoracic Spine X-Ray 02/13/22 10:51 Impression: No significant abnormalities noted. Discharge Plan Discharge Attending physician on discharge: Gary Lott
== END 2022-02-16 13:21 | disposition home or self-care (01) | DRG 639 ==
LOC: ANHED 08:09 → ANHICU 08:35 → ANH3MEDSUR 02-14 11:01
PROVIDERS: Emergency Medicine; Internal Medicine; Admitting Provider Chiropractor; Emergency Provider General Practice; Visit Provider Internal Medicine
DX: E10.10 Type 1 diabetes mellitus with ketoacidosis without coma (principal); K52.9 Noninfective gastroenteritis and colitis, unspecified; F17.290 Nicotine dependence, other tobacco product, uncomplicated; Z96.41 Presence of insulin pump (external) (internal); Z20.822 Contact with and (suspected) exposure to COVID-19
CPT/HCPCS: 36415; 36600; 71045; 72070; 72100; 74177; 80048; 80053; 81001; 82010; 82375; 82805; 82948; 83036; 83050; 83735; 84100; 84132; 85025; 87040; 87636; 96361; 96374; 99285; A9270; J1650; J1815; J2405; J2543; J3480; J7030; J7040; Q9967

== ENCOUNTER 2024-04-16 17:26 | Emergency (ER) | payer OTHER, SELFPAY ==
--- NOTE | 2024-04-16 17:29 | ED.SKABFB ---
HPI - Skin/Abscess/Foreign Bdy General Chief complaint: Skin/Abscess/Foreign Body Stated complaint: INFECTED CYST R LEG Time Seen by Provider: 04/16/24 17:29 Source: patient Mode of arrival: ambulatory Limitations: no limitations History of Present Illness HPI narrative: Patient is a 28-year-old male that presents with a wound to right medial thigh. Patient states that started on Friday as a small dean that he popped and drained a small amount of liquid from. Since then it has grown in redness and tenderness. Denies any more drainage. Patient has been using Neosporin and then wrapping with Sung wrap. Patient is a type 1 diabetic. Related Data Home Medications ?Medication ?Instructions ?Recorded ?Confirmed ?Last Taken ?Type insulin lispro 100 unit/mL 1.8 unit continuous subcutaneous 02/15/22 04/16/24 Unknown History subcutaneous solution (Humalog infusion DAILY U-100 Insulin) Allergies Allergy/AdvReac Type Severity Reaction Status Date / Time No Known Allergies Allergy Verified 04/16/24 17:36 Review of Systems Review of Systems: All systems reviewed & are unremarkable except as noted in HPI and below Constitutional: Constitutional: Denies body ache(s), Denies chills, Denies fatigue, Denies fever(s), Denies headache(s), Denies malaise and Denies weakness Eyes: Eyes: Denies blurry vision, Denies irritation and Denies loss of vision ENT: Denies otalgia, Denies headache(s), Denies nasal discharge, Denies sinus pain and Denies sore throat Cardiovascular: Cardiovascular: Denies chest pain, Denies irregular heart rhythm and Denies dyspnea Respiratory: Respiratory: Denies dyspnea Gastrointestinal: Gastrointestinal: Denies abdominal pain, Denies melena, Denies hematochezia, Denies diarrhea, Denies nausea and Denies vomiting Musculoskeletal: Musculoskeletal: Denies back pain, Denies myalgias and Denies arthralgias Integumentary/Breasts: Skin/Breast: Denies pruritus, Denies rash and Reports wounds Neurologic: Denies headache(s), Denies loss of vision and Denies weakness Psychiatric: Psychiatric: Reports no additional psychiatric complaints Endocrine: Endocrine: Denies fatigue PMFSH Past Medical History Medical History Type 1 diabetes Diabetic ketoacidosis Type 1 diabetes mellitus with hyperglycemia Surgical History Surgical History No significant past surgical history No pertinent past surgical history Family History Family History Father Hypertension Mother Alive and well Other Depression Family history of Alzheimer's disease Family history of arthritis Family history of elevated blood lipids Family history of malignant neoplasm of esophagus Social History Social History Social History: He lives with his significant other. He does not have a durable power privacy attorney for healthcare. The patient does vape tobacco. Patient denies any marijuana or other illicit drugs. He denies any alcohol, except for an occasional social drink. The patient is self-employed he works for a [employer] company. Code status full code Smoking status: Never smoker Tobacco type: e-cigarettes/vaping Second hand tobacco smoke exposure: No Alcohol intake: never Substance use: current Substance use type: marijuana Lack of Transportation: No Lack of Food: Sometimes True Current Housing: I Have Housing Concerned About Future Housing: No Difficulty Paying Gas/Electric Bills: No Difficulty Paying for Meds: No Currently Unemployed: No Education: High School Diploma/GED Difficulty w/ Childcare or Family Care: No Living arrangements: with family Occupation/Education: occupation Gender identity (if verbalized by the patient): Male Sexual Orientation (if Verbalized by the Patient): Straight or Heterosexual Spiritual care concerns: No Comments At time of signature, agree with nursing past medical, surgical, social and family history. There is no relevant family history pertinent to the presenting complaint. Exam Const: General: cooperative, healthy appearing, comfortable, no acute distress and well nourished Nutritional Appearance: well nourished Orientation/consciousness: patient oriented x3 Limitations: no limitations HENMT: Head: normal to inspection, normocephalic and atraumatic Ears: hearing grossly normal bilaterally and external ears normal Face/Nose/Sinus: Normal external nose present, normal facial exam and face symmetric Face and sinus: normal facial exam and face symmetric Mouth: Yes lip normal Eyes: General: appearance normal, both eyes and all related structures Alignment and Position: alignment normal and position normal Periorbital: periorbital findings normal Eyelids: eyelids normal Pupils: Equal, round and reactive pupils present EOM: EOMs intact bilaterally Neck: Neck: normal visual inspection, full ROM and supple Chest: Chest palpation & inspection: normal inspection of the chest Resp: Effort & Inspection: normal respiratory effort and able to speak in complete sentences Auscultation: clear to auscultation bilaterally Cardio: Rate: regular rate Rhythm: regular rhythm Heart sounds: S1 normal heart sound present and S2 normal heart sound present GI: Inspection: normal to inspection Skin: General skin exam: normal color and no rashes or lesions noted Full body images:  1. 4x4 cm Area of induration and erythema with center 1 x 1 cm area of scabbed over wound. No active drainage or fluctuance Neuro: General: patient oriented x3 and moves all extremities Cranial nerves: Yes Equal, round and reactive pupils present Speech: normal speech Gait exam (Neuro): Normal gait present Extrem: General: normal to inspection, full ROM and no edema Psych: Appearance: grossly normal and well kempt Mental Status: mental status grossly normal Speech and movement: Normal speech and movement present Affect: normal affect Attitude: cooperative Thought process: Normal thought process present Course Course Emergency Course: Patient is aware of diagnosis, understands and agrees to treatment plan. Anticipatory guidance given. Patient agrees to follow-up as directed and is aware of reasons to seek care at the emergency department. Portions of this record may have been created with voice recognition software Level of Care: Express Care Visit Vital Signs Vital signs: Vital Signs Temperature 37.1 C 04/16/24 17:42 Pulse Rate 103 H 04/16/24 17:42 Respiratory Rate 16 04/16/24 17:42 Blood Pressure 146/102 H 04/16/24 17:42 Pulse Oximetry 99 04/16/24 17:42 Temperature 37.1 C 04/16/24 17:42 Pulse Rate 103 H 04/16/24 17:42 Respiratory Rate 16 04/16/24 17:42 Blood Pressure 146/102 H 04/16/24 17:42 Pulse Oximetry 99 04/16/24 17:42 Reviewed MDM - Skin/Abscess/Foreign Bdy MDM Narrative Medical decision making narrative: Pt well hydrated appearing, in no respiratory distress, hemodynamically stable. Recommend supportive care. The patient is stable at time of discharge the clinical impression was discussed and the patient was given the opportunity to ask questions, which were addressed as completely as possible given the information available at present. Anticipatory guidance and return to care precautions were discussed and the importance of primary care follow-up was stressed and encouraged. The patient voiced understanding of the plan, indications to return, and the need for follow-up. Exam findings show no acute concerns or changes Patient is appropriate for outpatient treatment and follow-up. Differential Diagnosis Differential diagnosis: Likely abscess of skin or subcutaneous tissue, cellulitis and contact dermatitis Medical Records Attestation: I reviewed the patient's medical records. Discharge Plan Discharge Clinical Impression: Cellulitis Qualifiers: Site of cellulitis: extremity Site of cellulitis of extremity: lower extremity Laterality: right Qualified Code(s): L03.115 - Cellulitis of right lower limb Patient Disposition: Home, Self-Care Condition: Stable Instructions: Cellulitis (ED) Additional Instructions: Please follow up with your Primary Care Doctor within 48-72 hours - call for an appointment. Rest and elevate affected area; apply moist heat 3-4 times daily for 10-15 minutes. Take Motrin 600mg every 8 hours with food for pain. Please take Antibiotics as directed. If you experience any worsening redness, swelling, streaking (red lines), fever or chills please go to the ER Your blood pressure was elevated above 120/80 today at Urgent Care. This puts you above the threshold for follow up visit with a primary care provider. High blood pressure does not usually cause any symptoms, however it may lead to kidney failure, stroke, heart disease just to name a few if untreated . Many people are anxious when seeing a provider or nurse. As a result, you are not diagnosed with hypertension at this time unless your blood pressure is persistently high at two office visits at least one week apart. Some things that can help lower blood pressure are lifestyle modifications, such as light exercise, decreased salt in diet, and weight loss. It is important to follow up with a PCP about this within 1 week. Patient Language: Australian Prescriptions: New clindamycin HCl 300 mg capsule 300 mg PO Q8H 10 Days Qty: 30 0RF sulfamethoxazole-trimethoprim 800-160 mg tablet 1 tablet PO Q12H 5 Days Qty: 10 0RF mupirocin 2 % ointment 1 applic topical BID Qty: 15 0RF No Action metronidazole 500 mg tablet 500 mg PO Q8H Qty: 30 0RF insulin lispro [Humalog U-100 Insulin] 100 unit/mL solution 1.8 unit continuous subcutaneous infusion DAILY Rx Instructions: Basil Rate: 1.8U/hour during day 1.7U/hour during night Bolus 5-10U per meal insulin glargine [Lantus Solostar U-100 Insulin] 100 unit/mL (3 mL) insulin pen 40 unit subcut QPM PRN (Reason: diabetes) Qty: 15 0RF Rx Instructions: use when pump fails insulin aspart U-100 100 unit/mL (3 mL) Insulin Pen 1 sliding scale dose SUBCUT USEASDIRECTD 30 Days Qty: 3 0RF Rx Instructions: Sliding scale instructions include: glucose 70-200 no additional insulin glucose 201-250 4 units subcutaneously glucose 251-300 5 units subcutaneously glucose 301-350 6 units subcutaneously glucose 351-400 8 untis subcutaneously greater than 400 call your MD for further instructions no correction dose at bedtime Follow-up/Referrals: Elisabet,Alis [Other] - 3 Days Time of Disposition: 17:48
[2024-04-16 17:42] VITALS: BP 146/102; PULSE 103; RESP 16; TEMP 37.1; O2SAT 99
== END 2024-04-16 17:52 | disposition home or self-care (01) ==
PROVIDERS: Emergency Provider Nurse Practitioner Family
DX: L03.115 Cellulitis of right lower limb (principal); F12.90 Cannabis use, unspecified, uncomplicated; F17.290 Nicotine dependence, other tobacco product, uncomplicated; E10.9 Type 1 diabetes mellitus without complications
CPT/HCPCS: 99213; G0463